=== PATIENT | male | born 1955 | race Caucasian/White ===

== ENCOUNTER 2019-03-05 21:45 | Outpatient (CLI) | payer MEDICARE ==
--- NOTE | 2019-03-05 22:57 | RAD ---
LEFT SHOULDER THREE VIEWS: 03/05/19 No fracture, dislocation, or AC joint widening was seen. There is no periarticular calcification. The scapula appears intact as well. IMPRESSION: No acute findings. POS: HOME
--- NOTE | 2019-03-05 22:58 | RAD ---
LEFT HUMERUS THREE VIEWS: 03/05/19 No fracture or acute change was seen in the humerus. There are no bony destructive lesions. IMPRESSION: No significant findings. POS: HOME
== END 2019-03-05 21:46 | disposition home or self-care (01) ==
LOC: BURRAD 21:45
PROVIDERS: ATTEND Clinical Nurse Specialist Medical-Surgical
DX: M25.512 Pain in left shoulder (principal)